=== PATIENT | female | born 1995 | race Caucasian/White ===

== ENCOUNTER 2024-01-06 21:52 | Emergency (ER) | payer OTHER ==
[2024-01-06 22:06] VITALS: BP 129/79; O2SAT 96
[2024-01-06 22:53] LABS: BASOPHILS % (AUTO) 0.3 %; EOSINOPHILS % (AUTO) 3.5 %; HCT - HEMATOCRIT 53.1 % (37.0-47.0); HGB - HEMOGLOBIN 17.5 g/dL (12.0-16.0); LYMPHOCYTES % (AUTO) 16.5 %; MEAN CORPUSCULAR HEMOGLOBIN 27.7 pg (27.0-31.0); MEAN CORPUSCULAR VOLUME 84.2 fL (81.0-99.0); MEAN PLATELET VOLUME 9.2 fL (7.9-10.8); MONOCYTES % (AUTO) 7.5 %; NEUTROPHILS % (AUTO) 71.3 %; PLT - PLATELET COUNT 533 10^3/uL (130-450); RED BLOOD COUNT 6.31 10^6/uL (4.20-5.40); RED CELL DISTRIBUTION WIDTH 13.2 % (12.0-15.0); WHITE BLOOD COUNT 22.9 x10^3/uL (4.8-10.8)
[2024-01-06] MEDS: SODIUM CHLORIDE 0.9% 1,000 ML IV STA (22:53)
[2024-01-06] MEDS: ONDANSETRON 4 MG/2 ML VIAL IVP STA (22:53)
[2024-01-06 22:55] LABS: ABNORMAL LYMPHS % (MANUAL) 0 %
[2024-01-06 23:15] LABS: BAND NEUTROPHILS % (MANUAL) 6 %; DIFFERENTIAL COMMENT MANUAL DIFFERENTIAL; LYMPHOCYTES # (MANUAL) 4.8 10^3/uL (1.5-3.5); LYMPHOCYTES % (MANUAL) 12 %; METAMYELOCYTES % (MANUAL) 1 %; MONOCYTES # (MANUAL) 0.5 10^3/uL (0.0-1.0); NEUTROPHILS # (MANUAL) 17.4 10^3/uL (1.5-6.6); PLATELET ESTIMATE, MANUAL INCREASED (>450,000) (NORMAL); PLATELET MORPHOLOGY NORMAL APPEARANCE (NORMAL); RBC MORPHOLOGY (MULTIPLE) NORMAL APPEARANCE (NORMAL); REACTIVE LYMPHS % (MANUAL) 9 %
[2024-01-06 23:33] LABS: ALBUMIN 5.1 g/dL (3.2-5.5); ALBUMIN/GLOBULIN RATIO 1.8 (1.0-2.2); BILIRUBIN,TOTAL 0.5 mg/dL (0.2-1.0); CALCIUM 10.6 mg/dL (8.5-10.3); CREATININE 1.2 mg/dL (0.6-1.3); POTASSIUM 3.5 mmol/L (3.5-4.5); TOTAL PROTEIN 7.9 g/dL (6.4-8.9)
--- NOTE | 2024-01-06 23:47 | ED Physician Documentation ---
PD HPI ABD PAIN - Stated complaint Stated Complaint: V/N/D - Chief complaint Chief Complaint: Abd Pain - History obtained from History obtained from: Patient - Additional information Additional information: 28-year-old female with no reported past medical history presents by private vehicle from home for 1 week of diarrhea and 1 day of multiple episodes of emesis. Denies blood in emesis or diarrhea. Patient denies taking any medications regularly to myself but did apparently tell nursing staff in triage that she is on semaglutide. Reports feeling like her stomach is distended and bloated. Reports previous history of appendectomy. Review of Systems Constitutional: denies: Fever, Chills Cardiac: denies: Chest pain / pressure, Palpitations, Calf pain Respiratory: denies: Dyspnea, Cough, Wheezing GI: reports: Abdominal Pain, Nausea, Vomiting, Diarrhea. denies: Abdominal Swe lling, Constipation : denies: Dysuria, Frequency, Hesitancy PD PAST MEDICAL HISTORY - Past Medical History Past Medical History: No Cardiovascular: None Respiratory: None Neuro: None Endocrine/Autoimmune: None GI: None SENIOR RELATIONSHIP MANAGER: None : None HEENT: None Psych: None Musculoskeletal: None Derm: None - Past Surgical History Past Surgical History: Yes General: Appendectomy - Present Medications Home Medications: Ambulatory Orders Medication Instructions Recorded Confirmed Ondansetron Odt [Zofran] 4 mg TL Q6H PRN #30 tablet 01/07/24 - Allergies Allergies/Adverse Reactions: Allergies Allergy/AdvReac Type Severity Reaction Status Date / Time shellfish derived Allergy Anaphylaxis Verified 01/06/24 22:06 - Social History Does the pt smoke?: No Smoking Status: Never smoker PD ED PE NORMAL - Vitals Vital signs reviewed: Yes - General General: Alert and oriented X 3, No acute distress, Well developed/nourished - Cardiac Cardiac: RRR, Strong equal pulses - Respiratory Respiratory: No respiratory distress, Clear bilaterally - Abdomen Abdomen: Soft, Non tender, Non distended - Derm Derm: Normal color, Warm and dry, No rash - Extremities Extremities: No deformity, No tenderness to palpate, Normal ROM s pain, No edema - Neuro Neuro: Alert and oriented X 3, 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, No motor deficit, Normal speech - Psych Psych: Normal mood, Normal affect Results - Vitals Vitals: Vital Signs - 24 hr 01/06/24 22:01 Temperature 36.3 C L Heart Rate 105 H Respiratory 16 Rate Blood Pressure 129/79 O2 Saturation 96 Oxygen O2 Source Room air - Labs Labs: Laboratory Tests 01/06/24 01/06/24 01/07/24 22:49 22:49 00:00 WBC 22.9 H RBC 6.31 H Hgb 17.5 H Hct 53.1 H MCV 84.2 MCH 27.7 MCHC 33.0 RDW 13.2 Plt Count 533 H MPV 9.2 Neut # (Auto) Not Reportable Lymph # (Auto) Not Reportable [place] # (Auto) Not Reportable Eos # (Auto) Not Reportable Baso # (Auto) Not Reportable Absolute Nucleated RBC Not Reportable Total Counted 100 Band Neuts % (Manual) 6 Reactive Lymphs % (Man) 9 Abnorm Lymph % (Manual) 0 Metamyelocytes % 1 H Nucleated RBC % Not Reportable Neutrophils # (Manual) 17.4 H Lymphocytes # (Manual) 4.8 H Monocytes # (Manual) 0.5 Eosinophils # (Manual) 0.0 Basophils # (Manual) 0.0 Differential Comment MANUAL DIFFERENTIAL Platelet Estimate INCREASED (>450,000) Platelet Morphology NORMAL APPEARANCE RBC Morph Micro Appear NORMAL APPEARANCE Sodium 139 Potassium 3.5 Chloride 102 Carbon Dioxide 25 Anion Gap 12.0 BUN 12 Creatinine 1.2 Estimated GFR (MDRD) 53 L Glucose 88 Calcium 10.6 H Total Bilirubin 0.5 AST 14 ALT 24 Alkaline Phosphatase 96 Total Protein 7.9 Albumin 5.1 Globulin 2.8 Albumin/Globulin Ratio 1.8 Lipase 26 Urine Color YELLOW Urine Clarity CLEAR Urine pH 6.0 Ur Specific [place] 1.025 Urine Protein NEGATIVE Urine Glucose (UA) NEGATIVE Urine Ketones 40 H Urine Occult Blood NEGATIVE Urine Nitrite NEGATIVE Urine Bilirubin SMALL H Urine Urobilinogen 0.2 (NORMAL) Ur Leukocyte Esterase NEGATIVE Ur Microscopic Review NOT INDICATED Urine Culture Comments NOT INDICATED Urine HCG, Qual NEGATIVE PD Medical Decision Making - ED course Complexity details: reviewed results, re-evaluated patient, considered differential, d/w patient ED course: Well-appearing patient with 1 week of symptoms. Abdomen soft, no reproducible tenderness to deep palpation, no peritoneal signs. Patient reports concerned that she is dehydrated. She is hemodynamically stable with moist mucous membranes. Laboratory work, IV fluids, Zofran ordered. Laboratory work reviewed, patient does have leukocytosis of 22, other laboratory work within normal limits including electrolytes, kidney function, liver enzymes. No significant improvement with zofran. With leukocytosis and feeling of distension will order CT of abdomen/pelvis. CT shows no acute findings. Patient tolerating po after phenergan. Patient informed of all lab and imaging findings. Recommended supportive measures including anti-emetics and BRAT diet at home. PCP follow up advised. Departure - Departure Disposition: , Self Care Clinical Impression: Abdominal pain, Vomiting Instructions: ED Diet Vomiting Diarrhea Prescriptions: Ondansetron Odt [Zofran] 4 mg TL Q6H PRN #30 tablet PRN Reason: Nausea / Vomiting Comments: Your laboratory work and CT imaging today were reassuring. You did have an elevation in your white blood cell count, which can happen in acute vomiting and diarrhea. On CT scan today you do not appear to have any infection, inflammation, or blockages. For the neck several days follow a light diet, make sure that you drink plenty of fluids and stay hydrated. Antinausea medication has been sent to the [facility] in [place]. Follow-up with your primary care doctor if you continue to experience symptoms. Forms: PCP List Discharge Date/Time: 01/07/24 01:48
[2024-01-06] MEDS ORDERED: iohexoL-300 100 ML VIAL ONE (23:57)
[2024-01-07] MEDS ORDERED: PROMETHAZINE 25 MG/1 ML VIAL ONE (00:04)
[2024-01-07 00:21] LABS: BILIRUBIN,URINE SMALL (NEGATIVE); GLUCOSE, URINE (UA) NEGATIVE (NEGATIVE); KETONES,URINE (UA) 40 mg/dL (NEGATIVE); LEUKOCYTE ESTERASE, URINE NEGATIVE (NEGATIVE); NITRITE,URINE NEGATIVE (NEGATIVE); OCCULT BLOOD,URINE NEGATIVE (NEGATIVE); PROTEIN,URINE NEGATIVE (NEGATIVE); UROBILINOGEN,URINE 0.2 (NORMAL) E.U./dL (NORMAL)
[2024-01-07] MEDS: iohexoL-300 100 ML VIAL IVP ONE (00:26)
[2024-01-07 00:32] LABS: CLARITY,URINE CLEAR (CLEAR); HCG UR QUAL NEGATIVE
[2024-01-07] MEDS: PROMETHAZINE INJ 25 MG in SODIUM CHLORIDE 0.9% 50 ML IV STA (00:33)
--- NOTE | 2024-01-07 00:49 | CT Report ---
PROCEDURE: Abdomen/Pelvis W INDICATIONS: INTRACTABLE N/V/D X 1 WK, ABD DISTENSION CONTRAST: 100 ML OMNI 300 TECHNIQUE: After the administration of intravenous contrast, a CT scan of the abdomen and pelvis was performed. Images were recorded and evaluated at appropriate window settings. Reformats: coronal and sagittal. F or radiation dose reduction, the following was used: automated exposure control, adjustment of mA and /or kV according to patient size. COMPARISON: None. FINDINGS: Image quality: Diagnostic. Lower chest: Unremarkable. Liver: No solid mass. Gallbladder: No radiopaque stones or wall thickening. Biliary tree: No intrahepatic or extrahepatic dilation, accounting for age. Spleen: No splenomegaly. Pancreas: No pancreatic ductal dilation. Adrenals: No adrenal nodule. Kidneys and ureters: No hydronephrosis. No renal cystic lesion which requires follow up. No solid mas s. Stomach, bowel and peritoneum: No gastric or small bowel dilation. No abnormal wall thickening. No pa thologic free fluid. Appendix not identified but there is no pericecal inflammation to suggest acute appendicitis. Lymph nodes: No central or retroperitoneal adenopathy. Vessels: No infrarenal aortic aneurysm. Patent portal vein. PELVIS Reproductive organs: IUD within the central uterus. Symmetric ovaries. Bladder: No abnormal wall thickening, accounting for underdistention. Pelvic lymph nodes: No pelvic adenopathy by size criteria. Bones: No aggressive osseous abnormality. Other: No significant ventral or inguinal hernia. IMPRESSION: No acute abnormality. Reviewed by: Dheeraj Barber MD on 01/07/2024 12:47 AM PDT Approved by: Dheeraj Barber MD on 01/07/2024 12:47 AM PDT Station ID: [id number]
== END 2024-01-07 01:48 | disposition home or self-care (01) ==
LOC: ED 21:52
DX: R10.9 Unspecified abdominal pain (principal); R11.2 Nausea with vomiting, unspecified
CPT/HCPCS: 36415; 74177; 80053; 81003; 81025; 83690; 85025; 96361; 96365; 96375; 99283; 99284; Q9967; 81001; 87086